=== PATIENT | female | born 1950 ===

== ENCOUNTER 2016-03-01 10:38 | Inpatient (IN) | payer MEDICARE ==
[2016-03-01] MEDS ORDERED: FLAGYL 500 MG/100 ML 100 ML IV ONE (11:10)
[2016-03-01] MEDS ORDERED: ZOFRAN IV ONE (11:10)
[2016-03-01] MEDS ORDERED: DILAUDID IV ONE (11:10)
[2016-03-01] MEDS ORDERED: ZOSYN/NS 4.5GM/100ML 100 ML IV ONE (11:10)
[2016-03-01] MEDS ORDERED: NACL 0.9% 1000 ML 1,000 ML IV ONE (11:10)
--- NOTE | 2016-03-01 11:41 | Emergency Department Report ---
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 Patient was undergoing a routine screening colonoscopy today. Patient's fermentation operator, Dr. Desir, notified me that he saw a possible small tear in the colon. He states he placed to clips at the site to help identify the area. He then called EMS to bring patient is department. Patient is complaining of indigestion. She has no other complaints. -: This morning Consistency: constant Improves With: nothing Worsens With: nothing Context: recent surgery/procedure Associated Symptoms: denies other symptoms - Related Data Home Medications Medication Instructions Recorded Confirmed Last Taken ALPRAZolam [Xanax TAB] 0.25 mg PO 03/01/16 Unknown Aspirin [Aspirin BABY CHEW TAB] 81 mg PO QDAY 03/01/16 03/01/16 Unknown Benazepril (Nf) 20 mg PO 03/01/16 Unknown Cyclobenzaprine HCl [Flexeril 5 MG 5 mg PO 03/01/16 Unknown TAB] Diclofenac Dr [Voltaren Dr] 75 mg PO 03/01/16 Unknown Hydrochlorothiazide [HCTZ] 25 mg PO QDAY 03/01/16 03/01/16 Unknown traZODone [Desyrel] 50 mg PO QHS 03/01/16 03/01/16 Unknown Allergies Allergy/AdvReac Type Severity Reaction Status Date / Time codeine Allergy Vomiting Verified 03/01/16 11:17 latex Allergy Rash Verified 03/01/16 11:17 propoxyphene HCl Allergy Rash Verified 03/01/16 11:17 [From [facility]] ED Review of Systems ROS: Stated complaint: POSS COLON TEAR Other details as noted in HPI Comment: All other systems reviewed and negative Gastrointestinal: as per HPI (indigestion) ED Past Medical Hx - Past Medical History Previous Medical History?: Yes Hx Hypertension: Yes Hx Arthritis: Yes Additional medical history: colon polyps - Surgical History Past Surgical History?: Yes Additional Surgical History: carpal tunnel repair, hysterectomy - Family History Family history: no significant - Social History Smoking Status: Never Smoker Substance Use Type: None - Medications Home Medications: Home Medications Medication Instructions Recorded Confirmed Last Taken Type ALPRAZolam [Xanax TAB] 0.25 mg PO 03/01/16 Unknown History Aspirin [Aspirin BABY CHEW TAB] 81 mg PO QDAY 03/01/16 03/01/16 Unknown History Benazepril (Nf) 20 mg PO 03/01/16 Unknown History Cyclobenzaprine HCl [Flexeril 5 MG 5 mg PO 03/01/16 Unknown History TAB] Diclofenac Dr [Voltaren Dr] 75 mg PO 03/01/16 Unknown History Hydrochlorothiazide [HCTZ] 25 mg PO QDAY 03/01/16 03/01/16 Unknown History traZODone [Desyrel] 50 mg PO QHS 03/01/16 03/01/16 Unknown History ED Physical Exam - General Limitations: No Limitations General appearance: alert, in no apparent distress - Head Head exam: Present: atraumatic, normocephalic - Eye Eye exam: Present: normal appearance, PERRL, EOMI - ENT ENT exam: Present: normal exam, normal orophraynx, mucous membranes moist - Neck Neck exam: Present: normal inspection, full ROM. Absent: tenderness - Respiratory Respiratory exam: Present: normal lung sounds bilaterally. Absent: respiratory distress - Cardiovascular Cardiovascular Exam: Present: regular rate, normal rhythm, normal heart sounds - GI/Abdominal GI/Abdominal exam: Present: soft, normal bowel sounds. Absent: distended, tenderness - Extremities Exam Extremities exam: Present: normal inspection, full ROM. Absent: tenderness - Back Exam Back exam: Present: normal inspection, full ROM. Absent: tenderness - Neurological Exam Neurological exam: Present: alert, oriented X3. Absent: motor sensory deficit - Skin Skin exam: Present: warm, dry, intact ED Course Vital Signs 03/01/16 03/01/16 03/01/16 11:08 12:14 12:16 Temperature 97.8 F Pulse Rate 71 91 H Respiratory 20 16 16 Rate Blood Pressure 119/66 Blood Pressure 148/81 [Right] O2 Sat by Pulse 96 97 97 Oximetry - Reevaluation(s) Reevaluation #1: 03/01/16 12:58 Notified by the radiologist of the CT findings. Patient has a large amount of free air in the peritoneum and retroperitoneum. There is also pneumomediastinum and a left-sided pneumothorax, the extent of which is not fully seen on the CT abdomen and pelvis. CT of the chest has been ordered fully delineate the chest findings. Reevaluation #2: 03/01/16 13:24 CT of the chest reviewed by me shows pneumomediastinum and a small left pneumothorax. - Consultations Consultation #1: 03/01/16 13:[address] Montilla, surgery. He will see the patient in the emergency department. Consultation #2: 03/01/16 13:25 Dr. Mcneal, pulmonary/critical care has been consulted and will see the patient in the ICU. ED Medical Decision Making - Lab Data Result diagrams: 03/01/16 12:02 03/01/16 12:02 - Radiology Data Radiology results: report reviewed, image reviewed - Differential Diagnosis Colon perforation, peritoneal air Critical care attestation.: If time is entered above; I have spent that time in minutes in the direct care of this critically ill patient, excluding procedure time. ED Disposition Clinical Impression: Perforation bowel, Pneumomediastinum Disposition: OP ADMITTED IP TO THIS HOSP Is pt being admited?: Yes Condition: Stable Instructions: Abdominal Pain (ED) Time of Disposition: 13:26
[2016-03-01 12:16] LABS: Basophils % (Auto) 0.3 % (0.0-1.8); Eosinophils % (Auto) 0.3 % (0.0-4.3); Hematocrit 36.9 % (30.3-42.9); Hemoglobin 11.8 gm/dl (10.1-14.3); Mean Corpuscular HGB Conc 32 % (30-34); Mean Corpuscular Hemoglobin 27 pg (28-32); Mean Corpuscular Volume 86 fl (79-97); Platelet Count 262 K/mm3 (140-440); Red Blood Count 4.31 M/mm3 (3.65-5.03); Red Cell Distribution Width 15.2 % (13.2-15.2); White Blood Count 13.5 K/mm3 (4.5-11.0)
[2016-03-01 12:35] LABS: Alanine Aminotransferase 16 units/L (7-56); Albumin 4.1 g/dL (3.9-5); Albumin/Globulin Ratio 1.5 %; Alkaline Phosphatase 74 units/L (35-129); BUN/Creatinine Ratio 11.66; Bilirubin,Total 0.2 mg/dL (0.1-1.2); Blood Urea Nitrogen 7 mg/dL (7-17); Calcium 9.2 mg/dL (8.4-10.2); Carbon Dioxide 25 mmol/L (22-30); Chloride 100.5 mmol/L (98-107); Glucose 140 mg/dL (65-100); Potassium 4.1 mmol/L (3.6-5.0); Sodium 141 mmol/L (137-145); Total Protein 6.8 g/dL (6.3-8.2)
[2016-03-01 12:36] LABS: Anion Gap 20 mmol/L; Bilirubin,Direct < 0.2 mg/dL (0-0.2)
--- NOTE | 2016-03-01 12:38 | Cat Scan Report ---
CT of the abdomen and pelvis without contrast. Findings: There is a large pneumoperitoneum with predominance of the peritoneal air on the right. Air is seen in the retroperitoneum surrounding the right kidney as well. There is a partially visualized left pneumothorax and pneumomediastinum. The liver, spleen, and pancreas are normal. No pelvic fluid collections are seen. Impression: Pneumoperitoneum, left pneumothorax and pneumomediastinum, partially imaged. Air is seen in the retroperitoneum as well, predominantly on the right. These findings are consistent with a ruptured viscus with dissection into the thorax as described.
--- NOTE | 2016-03-01 13:30 | Cat Scan Report ---
CT of the chest without contrast. Findings: A small left pneumothorax, is estimated at 10% or less and is contiguous with a large pneumomediastinum with air extending throughout all compartments of the mediastinum. There is minimal left lower lobe atelectasis, but no pleural fluid. Impression: Large pneumomediastinum with contiguous small left pneumothorax.
[2016-03-01] MEDS ORDERED: NACL 0.9% 1000 ML 1,000 ML IV SCH (14:00)
--- NOTE | 2016-03-01 14:16 | Admit Criteria Form ---
Admission Criteria Documentation: ABDOMINAL PAIN Clinical Indications for Admission to Inpatient Care (Place 'X' for any and all applicable criteria): Admission is indicated for ANY ONE of the following(1)(2)(3)(4)(5): [X ]I. Inpatient admission required rather than observation care (Also use Abdominal Pain: Observation Care, as appropriate) because of ANY ONE of the following: [ ]a) Severe pain requiring acute inpatient management [X ]b) Identification of etiology/finding that requires inpatient care (eg, aortic dissection, free air) [ ]c) Absent bowel sounds with complete ileus(6) [ ]d) Suspected toxic megacolon [ ]e) Severe electrolyte abnormalities requiring inpatient care [ ]f) High fever or infection requiring inpatient admission as indicated by ANY ONE of following(7)(8): [ ] i) Appropriate outpatient or observational care antimicrobial treatment unavailable, not effective, or not feasible [ ] ii) Documented bacteremia [ ] iii) Temperature > 104.9 degrees F (oral) [ ] iv) T >103.1 F (oral) or < 96.8 F(rectal) that does not respond to all emergency treatment measures [ ]g) Signs of intestinal obstruction [B] [ ]h) Hemodynamic instability [ ]i) IV fluid to replace significant ongoing losses (greater than 3 L/m2 per day) (12)(13) [ ]j) Percutaneous or open drainage (eg, abscess, biliary tract ) procedures [ ]k) Parenteral nutrition regimen that must be implemented on inpatient basis [ ]l) Other condition,treatment or monitoring requiring inpatient admission. [ ]II. Peritoneal signs present [ ]III. Surgery needed that cannot be performed on an ambulatory basis. [ ]IV. Evaluation requires patient to not eat or drink for extended period ( eg, more than 24 hours). [ X]V. Contraindications and/or Inappropriate clinical situations for Observational Care in patients with abdominal pain, when ANY ONE of the following is required: [ ]a) Thorough evaluation is required to prevent catastrophic events due to delays in diagnosing (e.g.Mesenteric ischemia) 1,3 [X ]b) Patient with severe pathology or with chronic symptoms unlikely to improve in the ED stay (3) [ X]. General contraindications and/or Inappropriate clinical situations for Observational Care in patients with abdominal pain, when ANY ONE of the following is required: X[ X]a) Prediction of prolongation of LOS based on ANY ONE of the following may be considered as a contraindication for observational care 2, 3, 4, 5, 6, 7, 8, 9, 10, 11 [ X]i) Age > 65 yrs. [X ]ii) Patient arriving by ambulance [ ]iii) Patient with high acuity [ ]iv) Patient requiring vital sign monitoring [ ]v) Patient on IV medication [ ]b) Systolic blood pressures 180mmHg 3,12 [ ]c) Patient with altered mental status including delirium and other alteration of consciousness, (3) [ ]d) Patient whose discharge disposition will be to a long-term home or rehabilitation home should not be managed in Emergency Department Observation Unit. CMS rule requires 3 days hospital stay before such placement.3,13 [ ]e) Patient with failure to thrive due to broad array of etiologies 3,16,17 [ ]f) Inability to ambulate 3,14 Extended stay beyond goal length of stay may be needed for(2)(3): [ ]a) Persistent abdominal pain with suspected intra-abdominal process [ ]b) Diagnosed condition requiring continued stay (e.g., pancreatitis, complicated diverticulitis) [ ]c) Surgery (e.g., colectomy) The original [employer] content created by [employer] has been revised. The portions of the content which have been revised are identified through the use of italic text or in bold, and [facility] has neither reviewed nor approved the modified material.All other unmodified content is copyright [employer]. Please see references footnoted in the original [facility] edition 2016 Admission Criteria Met: Yes
--- NOTE | 2016-03-01 14:20 | Event Note ---
Date: 03/01/16
[2016-03-01] MEDS ORDERED: ALUM-MAG HYDROX-SIMETH 200-200-20MG/5ML PO PRN (14:22)
[2016-03-01] MEDS ORDERED: DILAUDID IV PRN ×3 (14:22→15:19)
[2016-03-01] MEDS ORDERED: DULCOLAX PR PRN (14:22)
[2016-03-01] MEDS ORDERED: NON-FORMULARY (Cyclobenzaprine Hcl [Flexeril 5 Mg Tab] 5 MG) PO SCH (14:30)
--- NOTE | 2016-03-01 14:39 | Consultation ---
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 According to the patient, she did not have any biopsies done or any polpys removed. She said that she has severe abdominal pain immediately after the procedure. In the ER, an abdominal CT revealed pneumoperitoneum as well as retroperitoneal air and pneumomediastinum. Past History Past Medical History: hypertension Past Surgical History: hysterectomy Medications and Allergies Allergies Allergy/AdvReac Type Severity Reaction Status Date / Time codeine Allergy Vomiting Verified 03/01/16 11:17 latex Allergy Rash Verified 03/01/16 11:17 propoxyphene HCl Allergy Rash Verified 03/01/16 11:17 [From [facility]] Home Medications Medication Instructions Recorded Confirmed Last Taken Type ALPRAZolam [Xanax TAB] 0.25 mg PO 03/01/16 Unknown History Aspirin [Aspirin BABY CHEW TAB] 81 mg PO QDAY 03/01/16 03/01/16 Unknown History Benazepril (Nf) 20 mg PO 03/01/16 Unknown History Cyclobenzaprine HCl [Flexeril 5 MG 5 mg PO 03/01/16 Unknown History TAB] Diclofenac Dr [Voltaren Dr] 75 mg PO 03/01/16 Unknown History Hydrochlorothiazide [HCTZ] 25 mg PO QDAY 03/01/16 03/01/16 Unknown History traZODone [Desyrel] 50 mg PO QHS 03/01/16 03/01/16 Unknown History Active Meds: Active Medications Al Hydrox/Mg Hydrox/Simethicone (Alum-Mag Hydrox-Simeth [id number]/5ml) 30 ml PO Q4H PRN PRN Reason: Indigestion Bisacodyl (Dulcolax) 10 mg NH QDAY PRN PRN Reason: constipation unrelieved by MOM Hydromorphone HCl (Dilaudid) 1 mg IV Q3HR PRN PRN Reason: Pain , Severe (7-10) Sodium Chloride (Nacl 0.9% 1000 Ml) 1,000 mls @ 125 mls/hr IV DIRECT MUKESH Dextrose/Sodium Chloride (D5ns) 1,000 mls @ 100 mls/hr IV DIRECT MUKESH Piperacillin Sod/Tazobactam Sod (Zosyn/Ns 4.5gm/100ml) 100 mls @ 200 mls/hr IV Q8HR MUKESH PRN Reason: Protocol Magnesium Hydroxide (Milk Of Magnesia) 30 ml PO Q4H PRN PRN Reason: Constipation Miscellaneous Medication (Cyclobenzaprine Hcl [Flexeril 5 Mg Tab]) 5 mg PO Q12H MUKESH Review of Systems - Gastrointestinal abdominal pain Exam Vital Signs Temp Pulse Resp BP Pulse Ox 97.8 F 71 20 119/66 96 03/01/16 11:08 03/01/16 11:08 03/01/16 11:08 03/01/16 11:08 03/01/16 11:08 - General physical appearance Positive: moderate distress - Eyes Positive: normal occular movement - Neck Positive: no masses, trachea midline - Respiratory Positive: clear to auscultation - Cardiovascular Rhythm: regular Heart Sounds: Present: S1 & S2 - Abdomen Abdomen: Present: soft (right sided abdominal tenderness to palpation) Results - Labs 03/01/16 12:02 03/01/16 12:02 Assessment and Plan 1. The patient will be taken to the OR for diagnostic laparoscopy, possible open exploratory laparotomy for perforated viscus. She has been given zosyn/ flagyl. The procedure was explained to the patient as well as its risks and benefits. Ample time was given for the patient to ask questions.
[2016-03-01] MEDS ORDERED: LACTATED RINGERS 1,000 ML ONE ×2 (14:55→17:39)
[2016-03-01] MEDS ORDERED: D5NS 1,000 ML IV SCH (15:00)
[2016-03-01] MEDS ORDERED: DIPRIVAN 10 MG/ML IV ONE (15:05)
[2016-03-01] MEDS ORDERED: DILAUDID ONE (15:06)
[2016-03-01] MEDS ORDERED: DECADRON ONE (15:06)
[2016-03-01] MEDS ORDERED: QUELICIN ONE (15:06)
[2016-03-01] MEDS ORDERED: ZOFRAN ONE (15:06)
[2016-03-01] MEDS ORDERED: ZEMURON IV ONE (15:06)
[2016-03-01] MEDS ORDERED: XYLOCAINE MPF 2% ONE (15:07)
--- NOTE | 2016-03-01 15:18 | Anesthesia Consultation ---
Anesthesia Consult and Med Hx Date of service: 03/01/16 - Airway Anesthetic Teeth Evaluation: Good ROM Head & Neck: Adequate Mental/Hyoid Distance: Adequate Mallampati Class: Class III Intubation Access Assessment: Possibly Difficult - Pulmonary Exam CTA: Yes - Cardiac Exam Cardiac Exam: RRR - Pre-Operative Health Status ASA Pre-Surgery Classification: ASA2 Proposed Anesthetic Plan: General - Cardiovascular System Hx Hypertension: Yes - Additional Comments Anesthesia Medical History Comments: perforated viscus
--- NOTE | 2016-03-01 15:18 | Anesthesia Day of Surgery ---
Anesthesia Day of Surgery - Day of Surgery Patient Examined: Yes Patient H&P Reviewed: Yes Patient is NPO: Yes
[2016-03-01] MEDS ORDERED: ZOFRAN IV PRN (15:19)
[2016-03-01] MEDS ORDERED: PEPCID IV NR (16:00)
[2016-03-01] MEDS ORDERED: LACTATED RINGERS 1,000 ML IV SCH ×2 (16:00→21:00)
[2016-03-01] MEDS ORDERED: MARCAINE-EPI 0.25%-1:200,000 INFILTRATI ONE ×2 (16:05)
[2016-03-01] MEDS ORDERED: NACL 0.9% IR ONE ×2 (16:26→18:03)
[2016-03-01] MEDS ORDERED: NACL 0.9% 1000 ML 0 ML ONE (17:39)
[2016-03-01] MEDS ORDERED: NACL 0.9% 1000 ML 1,000 ML ONE (17:39)
[2016-03-01] MEDS ORDERED: TORADOL ONE (18:22)
--- NOTE | 2016-03-01 18:29 | Post Operative Note ---
Pre-op diagnosis: Colon perforation Post-op diagnosis: same Procedure: Laparoscopic colonorrhaphy Anesthesia: GETA, local Surgeon: FRANCES LEONARD Vmware Architect: CHUN MOONEY Estimated blood loss: minimal Pathology: none Condition: stable Disposition: floor
[2016-03-01] MEDS: ZOSYN/NS 4.5GM/100ML 100 ML IV SCH (19:05)
--- NOTE | 2016-03-01 19:51 | Operative Report ---
PREOPERATIVE DIAGNOSIS: Colonic perforation. POSTOPERATIVE DIAGNOSIS: Colonic perforation. PROCEDURE: Laparoscopic exploration with lysis of adhesions and colonorrhaphy with abdominal washout. SURGEON: Dr. Jamal Hobbs. DIRECTOR GEOTHERMAL OPERATIONS: Dr. Montilla. ANESTHESIA: General and local. ESTIMATED BLOOD LOSS: Minimal. SPECIMEN: None. IMPLANTS: None. MESH: None. OPERATIVE FINDINGS: Perforated sigmoid colon in the pelvis with dense fibrotic pelvic adhesions between the small bowel and the colon with a 1.5 cm hole in the lateral aspect of the sigmoid colon. COMPLICATIONS: None. INDICATIONS: This is a 66-year-old female, who was having a screening colonoscopy and during the procedure, there were signs of a tear in the mucosa. A clip was placed on this opening for identification purposes. No other pathology was seen during the colonoscopy that would require being addressed and no other instrumentation or biopsies were performed. She presents now with an abdomen that is distended and tympanitic with a CT scan showing free air and she presents now for repair of this colonic perforation. OPERATIVE COURSE: The patient was brought to the operating room, identified, and placed in the supine position. General anesthesia was achieved. Her abdomen was prepped and draped in usual manner. Prior to all incisions, the area was infiltrated with 0.25% Marcaine. A supraumbilical 5 mm incision was made using a Veress needle technique. The abdomen was insufflated to 15 mmHg pressure. A 5 mm trocar was inserted using a 30-degree 5-mm telescope. The trocars were placed under direct vision, which included a right lateral 5 mm port and a right lower quadrant 5 mm port. The abdomen was explored. The colon was distended. There was evidence of subcutaneous air in the mesentery of the small bowel and colon. The pelvis was completely obliterated by the bowel and colon adhered into the pelvis with a frozen pelvis. We started dissection with sharp and blunt dissection, dissecting these adhesions as we went, eventually freeing up the small bowel. These were quite extensive. Great care was taken not to injure the small bowel or colon. It should be noted that we did see the appendix and it was normal. Once we had the colon freed up completely and the rectum exposed, we found a hole in the sigmoid colon on the lateral aspect at the transition from colon to the colonic mesentery. This was about 1.5 cm in length. We could see metal clip in the mucosa from the colonoscopy. No other holes were seen. There was very minimal colonic content spilled into the pelvis, which was evacuated. Because of the size of the hole, I elected to close it primarily, so I debrided some of the tissue away from the hole itself, so we had nice smooth colonic serosal surface. Using the suture assist device with 2-0 sutures, we placed interrupted sutures until it was completely occluded. I then irrigated the abdomen copiously, mainly the pelvis, keeping the fluid in the pelvis and then evacuated this fluid. Because the colon was very redundant in this area and accordianed into the pelvis again, I elected to tack it to the left lateral wall with a single suture and I sutured the mesentery on the lateral aspect of the sigmoid colon over the lateral wall, to keep it from rescarring down into the pelvis. Hopefully this will facilitate future colonoscopies as well as make it easier for a future surgery if necessary. There was no significant omentum to drape back across the bowels. No other pathology was seen. We removed the ports under direct vision. No signs of bleeding from the port sites. We evacuated the CO2 and closed all the incisions with a 4-0 Vicryl suture, Steri-Strips and bandage. JOB# [id number] LILLIAN/ANGELY MEADOWS
--- NOTE | 2016-03-01 20:40 | Post Anesthesia Evaluation ---
- Post Anesthesia Evaluation Patient Participated: Yes Airway Patent: Yes Stable Respiratory Function: Yes Temp > 96.8F: Yes Pain Manageable: Yes Adequeate Hydration: Yes Anesthesia Complications: No Block Receding Appropriately: Not Applicable
[2016-03-01] MEDS: FLEXERIL PO SCH (22:17)
[2016-03-01] MEDS ORDERED: ZESTRIL PO SCH (23:00)
[2016-03-01] MEDS ORDERED: HCTZ PO SCH (23:00)
--- NOTE | 2016-03-02 01:28 | History and Physical Report ---
CHIEF COMPLAINT: Perforated colon, sent from surgery aide's office. HISTORY OF PRESENT ILLNESS: A 66-year-old -British female who went to her surgery aide's office for colonoscopy. After colonoscopy, Dr. Desir notified that he saw a possible small tear in the colon and sent to the ER for further care. He also placed clips at the site to help identify the area. The patient complaining of some slight abdominal pain, but no shortness of breath, no chest pain, no abdominal pain. PAST MEDICAL HISTORY: Significant for arthritis, hypertension, and generalized anxiety disorder. CURRENT MEDICATIONS: Xanax 0.25 p.o. at bedtime, benazepril 20 mg p.o. daily, cyclobenzaprine 5 mg b.i.d., diclofenac 75 mg b.i.d., hydrochlorothiazide 25 mg p.o. daily. As mentioned past medical history is significant for hypertension, arthritis, colon polyps. PAST SURGICAL HISTORY: Carpal tunnel repair and hysterectomy. FAMILY HISTORY: No significant family history. SOCIAL HISTORY: Does not smoke. No alcohol, no recreational drugs. REVIEW OF SYSTEMS: Significant for slight abdominal discomfort. No shortness of breath, no severe pain. Review of systems is essentially negative. PHYSICAL EXAMINATION: GENERAL: Elderly female, cooperative during examination. VITAL SIGNS: Blood pressure is , temperature is 97.8, pulse is 71, respiratory rate is 20. HEENT: Unremarkable. Pupils equal and reactive. NECK: Supple, no lymphadenopathy, no thyromegaly. LUNGS: Clear to auscultation and percussion. Good air entry. CARDIOVASCULAR: S1, S2 heard. No gallop, no murmur, no rub. Apical impulse in left fifth intercostal space and midclavicular line. ABDOMEN: Soft and benign. Bowel sounds are normal. EXTREMITIES: Good pedal pulses. No pedal edema. CENTRAL NERVOUS SYSTEM: Alert and oriented x 4, nonfocal exam. LABORATORY DATA: Unremarkable. White count is 13,500. X-ray and radiology shows pneumomediastinum and small left pneumothorax. Large amount of free air in the peritoneum and retroperitoneum. ASSESSMENT AND PLAN: 1. Pneumomediastinum and pneumothorax secondary to colon perforation. The patient appears stable. Admit to ICU. 2. Colon perforation. The patient to be taken for emergent surgery. Post-surgery to be admitted to ICU or surgical floor. The patient appears stable. The pneumomediastinum and pneumothorax should resolve spontaneously. At this point, does not need chest tube. 3. Hypertension. Catapres- TTS-2 patch. 4. Pain management, Dilaudid 1 mg q. 3 p.r.n. 5. Deep venous thrombosis prophylaxis, Lovenox 40 mg subcutaneous daily. JOB# [id number] YOVANA/NTS
[2016-03-02] MEDS: ZOSYN/NS 4.5GM/100ML 100 ML IV SCH ×2 (03:00→14:00)
[2016-03-02] MEDS: FLEXERIL PO SCH ×2 (03:00→15:00)
[2016-03-02] MEDS: DILAUDID IV PRN ×3 (03:52→20:21)
[2016-03-02 07:41] LABS: Hematocrit 31.4 % (30.3-42.9); Hemoglobin 10.4 gm/dl (10.1-14.3); Mean Corpuscular HGB Conc 33 % (30-34); Mean Corpuscular Hemoglobin 28 pg (28-32); Mean Corpuscular Volume 84 fl (79-97); Platelet Count 236 K/mm3 (140-440); Red Blood Count 3.75 M/mm3 (3.65-5.03); Red Cell Distribution Width 15.3 % (13.2-15.2); White Blood Count 16.6 K/mm3 (4.5-11.0)
[2016-03-02 08:14] LABS: Anion Gap 20 mmol/L; Blood Urea Nitrogen 10 mg/dL (7-17); Calcium 8.3 mg/dL (8.4-10.2); Carbon Dioxide 22 mmol/L (22-30); Chloride 101.5 mmol/L (98-107); Glucose 120 mg/dL (65-100); Potassium 3.4 mmol/L (3.6-5.0); Sodium 140 mmol/L (137-145)
--- NOTE | 2016-03-02 08:21 | Query- Abdominal Pain ---
Rose Sanders_Carissa Date:____03/02/15 Outside Production Inspector/CDS:____Dianafany Mcgovern Phone#: [phone] Exercise your independent professional judgment when responding to this query. Questions asked do not imply that a particular answer is desired or expected. We greatly appreciate your clarification on this issue. Clinical Documentation States: 66 year old male was admitted on 03/01/16. The patient came to the ER complaining of Abdominal pain The H&P states : perforated colon. Large amount of free air in the peritoneum and retroperitoneum. The operative report dictates " sigmoid colon with dense fibrotic pelvic adhesions between small bowel and colon with 1.5 cm hole in the lateral aspect of sigmoid colon ". " Procedure: Laparoscopic exploration with lysis of adhesions and colorraphy with abdominal washout " Clinical Findings Show: Please specify the etiology of Abdominal Pain: [ ]Appendicitis, Acute [ ] Intestinal Obstruction [ ]Diverticulitis, Acute [ ] Uremia [ ]Pancreatitis, Acute [ ] Thoracic Aortic Aneurysm [ ]Peritonitis [ ] Urinary Tract Infection [ ]Ulcerative Colitis [ ] Pelvic Inflammatory Disease [ ]Cholecystitis [ ] Cystitis [ ]Cholangitis [ ] Pyelonephritis [ ]Viral Gastroenteritis [ ] Renal Stones [ ]Gastroenteritis, Bacterial [ ] Retroperitoneal Infection [ ]Gastritis [ ] Shingles [ ]Peritoneal Irritation [ ] Mesenteric Artery Occlusion [ ]Peritoneal Inflammation [ ] Trauma(please specify): _ [ ]Peritoneal Infection [ ] Irritable Bowel Syndrome [ ]Constipation [ ] Hernia [ ]GERD [ ] Cholelithiasis [ ]Peptic Ulcer [ ] Vascular Insufficiency of Intestine [ ]Diabetic Ketoacidosis [ ]Cancer [ ]Other:____Peritoneal air [ ]Unable to determine [ ]Comment/Explanation: Present on Admission: [ x] Yes (Y) [ ] Clinically undeterminable (W) [ ] No(N) Please also document response in your Progress Notes and/or Discharge Summary and indicate if the condition was present on admission. DORI
--- NOTE | 2016-03-02 09:02 | Event Note ---
Date: 03/02/16 Courtesy visit: The patient is known to me having been referred to the hospital yesterday after recognized small perforation in the sigmoid colon and colonoscopy due to matted , fixed bowel. The patient had a significant air leak requiring laparoscopic repair of the defect, but did not require resection or colostomy as there was minimal leakage. The events were discussed with patient at length. I had spoken with her son preoperatively yesterday. She has done well over night and reports passing some flatus already. She has no significant abdominal discomfort. A relatively short hospital course is anticipated although an ileus is expected in this setting. We will be following patient, at least informally as she is recovering well so far. Dawit Desir MD [facility]
--- NOTE | 2016-03-02 09:29 | Progress Note ---
Assessment and Plan Assessment and plan: 1. Perforated colon post colonoscopy and post ,laparoscopic repair-management is as per surgery. She is currently nothing by mouth. Continue IV fluids. Patient encouraged to use incentive spirometer. Continue IV Dilaudid as needed for pain and monitor for respiratory depression. Continue IV fluids and IV antibiotics. 2. Sirs with temperature spike and leukocytosis to rule out sepsis-we'll continue to monitor. Will get blood cultures. Continue on IV antibiotics empirically. 3. Benign hypertension-controlled, continue clonidine patch. 4. Mild hypokalemia -replace with IV potassium supplementation and continue to monitor 5. DVT prophylaxis-SCDs, will defer chemical prophylaxis to surgery, consult PT for ambulation History Interval history: f/u perforated colon post repair Patient seen at the bedside; passing gas; feels a little bloated; no significant abdominal pain Hospitalist Physical - Constitutional Vitals: Temp Pulse Resp BP Pulse Ox 99 F 85 20 129/61 99 03/02/16 08:01 03/02/16 08:01 03/02/16 08:01 03/02/16 08:01 03/02/16 08:01 General appearance: Present: no acute distress, well-nourished - EENT Eyes: Present: PERRL, EOM intact. Absent: scleral icterus, conjunctival injection ENT: hearing intact, clear oral mucosa, no oropharyngeal erythema, no poor dentition - Neck Neck: Present: supple, normal ROM. Absent: enlarged thyroid, masses or JVD - Respiratory Respiratory effort: normal Respiratory: negative: diminished, rales, rhonchi, wheezing - Cardiovascular Rhythm: regular Heart Sounds: Present: S1 & S2. Absent: gallop - Extremities Extremities: no ischemia, pulses intact, pulses symmetrical, No edema Peripheral Pulses: within normal limits - Abdominal General gastrointestinal: soft, tender (mild), distended (mild), hypoactive bowel sounds - Integumentary Integumentary: Present: clear - Psychiatric Psychiatric: appropriate mood/affect, intact judgment & insight, cooperative - Neurologic Neurologic: CNII-XII intact, moves all extremities Results - Labs CBC & Chem 7: 03/02/16 07:23 03/02/16 07:23 Labs: Laboratory Last Values WBC 16.6 K/mm3 (4.5-11.0) H 03/02/16 07:23 RBC 3.75 M/mm3 (3.65-5.03) 03/02/16 07:23 Hgb 10.4 gm/dl (10.1-14.3) 03/02/16 07:23 Hct 31.4 % (30.3-42.9) 03/02/16 07:23 MCV 84 fl (79-97) 03/02/16 07:23 MCH 28 pg (28-32) 03/02/16 07:23 MCHC 33 % (30-34) 03/02/16 07:23 RDW 15.3 % (13.2-15.2) H 03/02/16 07:23 Plt Count 236 K/mm3 (140-440) 03/02/16 07:23 Lymph % (Auto) 13.1 % (13.4-35.0) L 03/01/16 12:02 [place] % (Auto) 5.1 % (0.0-7.3) 03/01/16 12:02 Eos % (Auto) 0.3 % (0.0-4.3) 03/01/16 12:02 Baso % (Auto) 0.3 % (0.0-1.8) 03/01/16 12:02 Lymph # 1.8 K/mm3 (1.2-5.4) 03/01/16 12:02 [place] # 0.7 K/mm3 (0.0-0.8) 03/01/16 12:02 Eos # 0.0 K/mm3 (0.0-0.4) 03/01/16 12:02 Baso # 0.0 K/mm3 (0.0-0.1) 03/01/16 12:02 Seg Neutrophils % 81.2 % (40.0-70.0) H 03/01/16 12:02 Seg Neutrophils # 10.9 K/mm3 (1.8-7.7) H 03/01/16 12:02 Sodium 140 mmol/L (137-145) 03/02/16 07:23 Potassium 3.4 mmol/L (3.6-5.0) L 03/02/16 07:23 Chloride 101.5 mmol/L (98-107) 03/02/16 07:23 Carbon Dioxide 22 mmol/L (22-30) 03/02/16 07:23 Anion Gap 20 mmol/L 03/02/16 07:23 BUN 10 mg/dL (7-17) 03/02/16 07:23 Creatinine 0.8 mg/dL (0.7-1.2) 03/02/16 07:23 Estimated GFR > 60 ml/min 03/02/16 07:23 BUN/Creatinine Ratio 12.50 % 03/02/16 07:23 Glucose 120 mg/dL (65-100) H 03/02/16 07:23 Calcium 8.3 mg/dL (8.4-10.2) L 03/02/16 07:23 Total Bilirubin 0.2 mg/dL (0.1-1.2) 03/01/16 12:02 Direct Bilirubin < 0.2 mg/dL (0-0.2) 03/01/16 12:02 Indirect Bilirubin 0.0 mg/dL 03/01/16 12:02 AST 24 units/L (5-40) 03/01/16 12:02 ALT 16 units/L (7-56) 03/01/16 12:02 Alkaline Phosphatase 74 units/L (35-129) 03/01/16 12:02 Total Protein 6.8 g/dL (6.3-8.2) 03/01/16 12:02 Albumin 4.1 g/dL (3.9-5) 03/01/16 12:02 Albumin/Globulin Ratio 1.5 % 03/01/16 12:02 - Imaging and Cardiology CT scan - abdomen: report reviewed (CT abdomen and pelvis-pneumoperitoneum, with predominance of departure no ear on the right. Interested in the retroperitoneal area surrounding the right kidney appeared partially visualized left pneumothorax and pneumomediastinum)
[2016-03-02] MEDS ORDERED: CATAPRES-TTS PATCH TD SCH (10:00)
[2016-03-02] MEDS: KCL 10MEQ/100ML 100 ML IV SCH ×2 (10:48→17:00)
--- NOTE | 2016-03-02 10:50 | Consultation ---
History of Present Illness Consult date: 03/02/16 Requesting physician: NADIA VARELA Reason for consult: pneumothorax History of present illness: 66 y/o female found to have a tear in the GI tract seen on outpatient colonoscopy who presents to the ED for further evaluation. Found to have significant free air in the abdomen and under the diaphragm. There is also a large PTX seen on the left on CT of abdomen so dedicated chest CT showed ptx and pneumomediastinum. Patient taken to OR for ex-lap and is now on the floor stable. Past History Past Medical History: hypertension Past Surgical History: hysterectomy Social history: smoking (former smoker of 9 years quit in ) Family history: no significant family history Medications and Allergies Allergies Allergy/AdvReac Type Severity Reaction Status Date / Time codeine Allergy Vomiting Verified 03/01/16 11: latex Allergy Rash Verified 03/01/16 11:17 propoxyphene HCl Allergy Rash Verified 03/01/16 11:17 [From [facility]] Home Medications Medication Instructions Recorded Confirmed Last Taken Type ALPRAZolam [Xanax TAB] 0.25 mg PO HS PRN 03/01/16 03/01/16 02/29/16 20:00 History Aspirin [Aspirin BABY CHEW TAB] 81 mg PO QDAY 03/01/16 03/01/16 02/26/16 20:00 History Benazepril (Nf) 20 mg PO DAILY 03/01/16 03/01/16 02/29/16 History Cyclobenzaprine HCl [Flexeril 5 MG 5 mg PO BID PRN 03/01/16 03/01/16 10/28/15 History TAB] Hydrochlorothiazide [HCTZ] 25 mg PO QDAY 03/01/16 03/01/16 02/29/16 20:00 History traZODone [Desyrel] 50 mg PO QHS 03/01/16 03/01/16 02/28/16 20:00 History Active Meds: Active Medications Al Hydrox/Mg Hydrox/Simethicone (Alum-Mag Hydrox-Simeth [id number]/5ml) 30 ml PO Q4H PRN PRN Reason: Indigestion Bisacodyl (Dulcolax) 10 mg MI QDAY PRN PRN Reason: constipation unrelieved by MOM Clonidine HCl (Catapres-Tts Patch) 0.2 mg TD We MUKESH Cyclobenzaprine HCl (Flexeril) 5 mg PO Q12H [facility] Last Admin: 03/02/16 03:00 Dose: Not Given Hydrochlorothiazide (Hctz) 25 mg PO QDAY [facility] Last Admin: 03/02/16 00:19 Dose: Not Given Hydromorphone HCl (Dilaudid) 1 mg IV Q3H PRN PRN Reason: Pain , Severe (7-10) Last Admin: 03/02/16 03:52 Dose: 1 mg Piperacillin Sod/Tazobactam Sod (Zosyn/Ns 4.5gm/100ml) 100 mls @ 200 mls/hr IV Q8H [facility] PRN Reason: Protocol Last Admin: 03/02/16 03:00 Dose: 200 mls/hr Lactated Ringer's (Lactated Ringers) 1,000 mls @ 80 mls/hr IV DIRECT MUKESH Potassium Chloride (Kcl 10meq/100ml) 100 mls @ 100 mls/hr IV Q1H [facility] Stop: 03/02/16 12:29 Influenza Virus Vaccine Quadrival (Fluarix Quad [id number](36 Mos+)) 60 mcg IM .ONCE ONE Stop: 03/02/16 12:01 Lisinopril (Zestril) 20 mg PO QDAY [facility] Last Admin: 03/01/16 23:30 Dose: 20 mg Magnesium Hydroxide (Milk Of Magnesia) 30 ml PO Q4H PRN PRN Reason: Constipation Ondansetron HCl (Zofran) 4 mg IV Q3H PRN PRN Reason: Nausea And Vomiting Pneumococcal Polyvalent Vaccine (Pneumovax 23) 0.5 ml IM .ONCE ONE Stop: 03/02/16 12:01 Review of Systems All systems: negative Physical Examination Vital signs: Vital Signs Temp Pulse Resp BP Pulse Ox 97.8 F 71 20 119/66 96 03/01/16 11:08 03/01/16 11:08 03/01/16 11:08 03/01/16 11:08 03/01/16 11:08 General appearance: no acute distress, alert Eyes: non-icteric ENT: oropharynx moist Neck: supple, no lymphadenopathy, other (does have some crepitus around collar bone) Ascultation: Bilateral: clear Percussion: Bilateral: not dull Tactile fremitus: Bilateral: normal Cardiovascular: regular rate and rhythm Gastrointestinal: normoactive bowel sounds, soft, other (post surgical changes) Extremities: no cyanosis, no edema Musculoskeletal: no deformities normal mental status, non-focal exam mood appropriate, affect normal Results - Laboratory Findings CBC and BMP: 03/02/16 07:23 03/02/16 07:23 Abnormal lab findings: Abnormal Labs 03/02/16 03/02/16 07:23 07:23 WBC 16.6 H RDW 15.3 H Potassium 3.4 L Glucose 120 H Calcium 8.3 L - Diagnostic Findings CT scan - chest: image reviewed (left sided PTX but with significant pneumomediastinum) Assessment and Plan 66 y/o female with ptx and pneumomediastinum, likely secondary to bowel perforation. 1. Continue conservative management with supplemental O2 for now 2. At this point, no indication for chest tube. Repeat CXR appears slightly improved. No worsening of Pneumomediastinum on exam. Will repeat 2 view tomorrow 3. Will continue to follow with you.
[2016-03-02] MEDS ORDERED: PNEUMOVAX 23 IM ONE (12:00)
[2016-03-02] MEDS ORDERED: FLUARIX QUAD 2016-2017(36 MOS+) IM ONE (12:00)
--- NOTE | 2016-03-02 12:21 | XRay Report ---
PORTABLE CHEST: INDICATION: Left-sided pneumothorax with pneumomediastinum. COMPARISON: Yesterday's CT imaging. FINDINGS: Portable, frontal chest radiograph again demonstrates normal cardiomediastinal silhouette and mild aortic knob calcifications with pneumomediastinum and bilateral supraclavicular subcutaneous emphysematous lucency/heterogeneity. Small left pneumothorax with pleural separation of approximately 1.2 cm also noted, overall estimated at 15%. No focal consolidation, significant pleural effusions or CHF. EKG leads. Few bony degenerative changes. CONCLUSION: Small left apical pneumothorax, pneumomediastinum and bilateral subcutaneous emphysema noted, as described. Thank you for the opportunity to participate in this patient's care.
--- NOTE | 2016-03-02 15:09 | Progress Note ---
Assessment and Plan She is doing well though still at risk for postop ileus and/or pelvic abscess formation. Will advance diet to clear liquids. Monitor temperature curve and WBC Continue empiric antibiotics The thoracic findings are not clinically significant and merely reflect dissection of air through the soft tissue planes from the colonic perforation. No intervention is needed. Encouraged pulmonary toilet and ambulation. Subjective Date of service: 03/02/16 Patient Reports: Positive: no new complaints (No abdominal pain. No SOB), flatus, bowel movement. Negative: nausea, vomiting Objective Vital Signs - 12hr 03/02/16 03/02/16 03/02/16 03:52 04:22 05:32 Temperature 100.1 F H Pulse Rate [ 96 H Brachial] Respiratory 20 20 20 Rate Blood Pressure 120/62 [Left Arm] O2 Sat by Pulse 100 Oximetry 03/02/16 03/02/16 03/02/16 05:34 05:36 08:01 Temperature 98.5 F 100.1 F H 99 F Pulse Rate [ 82 96 H 85 Brachial] Respiratory 20 20 20 Rate Blood Pressure 138/76 120/62 129/61 [Left Arm] O2 Sat by Pulse 98 100 99 Oximetry 03/02/16 12:17 Temperature 98.9 F Pulse Rate [ 104 H Brachial] Respiratory 18 Rate Blood Pressure 140/63 [Left Arm] O2 Sat by Pulse Oximetry - General physical appearance no distress - Respiratory normal expansion, normal respiratory effort, clear to percussion, clear to auscultation - Abdomen soft, not tender, bowel sounds normal, not distended, other (Bandaids clean dry and intact) - Labs 03/02/16 07:23 03/02/16 07:23 Diabetes panel 03/02/16 Range/Units 07:23 Sodium 140 (137-145) mmol/L Potassium 3.4 L (3.6-5.0) mmol/L Chloride 101.5 (98-107) mmol/L Carbon Dioxide 22 (22-30) mmol/L BUN 10 (7-17) mg/dL Creatinine 0.8 (0.7-1.2) mg/dL Glucose 120 H (65-100) mg/dL Calcium 8.3 L (8.4-10.2) mg/dL Calcium panel 03/02/16 Range/Units 07:23 Calcium 8.3 L (8.4-10.2) mg/dL Pituitary panel 03/02/16 Range/Units 07:23 Sodium 140 (137-145) mmol/L Potassium 3.4 L (3.6-5.0) mmol/L Chloride 101.5 (98-107) mmol/L Carbon Dioxide 22 (22-30) mmol/L BUN 10 (7-17) mg/dL Creatinine 0.8 (0.7-1.2) mg/dL Glucose 120 H (65-100) mg/dL Calcium 8.3 L (8.4-10.2) mg/dL Adrenal panel 03/02/16 Range/Units 07:23 Sodium 140 (137-145) mmol/L Potassium 3.4 L (3.6-5.0) mmol/L Chloride 101.5 (98-107) mmol/L Carbon Dioxide 22 (22-30) mmol/L BUN 10 (7-17) mg/dL Creatinine 0.8 (0.7-1.2) mg/dL Glucose 120 H (65-100) mg/dL Calcium 8.3 L (8.4-10.2) mg/dL
[2016-03-02] MEDS ORDERED: BENAZEPRIL PO SCH (22:00)
[2016-03-02] MEDS: BENAZEPRIL PO SCH (22:21)
[2016-03-02] MEDS: HCTZ PO SCH (22:22)
[2016-03-03] MEDS: MILK OF MAGNESIA PO PRN ×2 (01:23→01:24)
[2016-03-03] MEDS: DILAUDID IV PRN ×4 (01:23→21:26)
[2016-03-03] MEDS: ZOFRAN IV PRN ×2 (01:25→05:29)
[2016-03-03] MEDS: ZOSYN/NS 4.5GM/100ML 100 ML IV SCH ×2 (03:00→17:00)
[2016-03-03 05:27] LABS: Basophils % (Auto) 0.3 % (0.0-1.8); Eosinophils % (Auto) 0.6 % (0.0-4.3); Hematocrit 29.7 % (30.3-42.9); Mean Corpuscular HGB Conc 34 % (30-34); Mean Corpuscular Hemoglobin 28 pg (28-32); Mean Corpuscular Volume 84 fl (79-97); Platelet Count 234 K/mm3 (140-440); Red Blood Count 3.53 M/mm3 (3.65-5.03); Red Cell Distribution Width 15.4 % (13.2-15.2); White Blood Count 13.4 K/mm3 (4.5-11.0)
[2016-03-03 05:41] LABS: Alanine Aminotransferase 15 units/L (7-56); Albumin 3.1 g/dL (3.9-5); Alkaline Phosphatase 53 units/L (35-129); BUN/Creatinine Ratio 11.42; Bilirubin,Total 0.5 mg/dL (0.1-1.2); Blood Urea Nitrogen 8 mg/dL (7-17); Calcium 8.6 mg/dL (8.4-10.2); Carbon Dioxide 26 mmol/L (22-30); Chloride 102.9 mmol/L (98-107); Glucose 116 mg/dL (65-100); Potassium 3.1 mmol/L (3.6-5.0); Sodium 140 mmol/L (137-145); Total Protein 6.1 g/dL (6.3-8.2)
[2016-03-03 05:44] LABS: Anion Gap 14 mmol/L
[2016-03-03] MEDS: KCL 10MEQ/100ML 100 ML IV SCH ×3 (08:43→13:00)
--- NOTE | 2016-03-03 08:43 | Event Note ---
Date: 03/03/16 Courtesy GI visit: The patient reports feeling well overnight. Minimal abdominal pain. She is ambulating in the room, had a BM and is tolerating clear liquids. She denies any SOB, cough or CP. The abdominal exam is benign and lap incisions sites are clean and dry. CXR yesterday revealed a small apical PTX, pneumomediastinum and subcutaneous emphysema. F/u CXR ordered by pulmonary. WBC 13.4 ( decreased from 16). On antibiotics. Care discussed. I will see her in the office in 6-8 weeks. She is recovering well and will go home when cleared by surgery. Dawit Desir MD
--- NOTE | 2016-03-03 11:38 | Progress Note ---
Assessment and Plan Assessment and plan: 1. Perforated colon post colonoscopy and post ,laparoscopic repair-management is as per surgery. tolerating clear liquids as per sx; Continue IV fluids. Patient encouraged to use incentive spirometer. Continue IV Dilaudid as needed for pain and monitor for respiratory depression. Continue IV fluids and IV antibiotics. 2. Sirs with temperature spike and leukocytosis with possible sepsis-now afebrile; wbc trending down; to rule out sepsis-we'll continue to monitor. F/ U blood cultures. Continue on IV antibiotics empirically. 3. Benign hypertension-controlled, continue clonidine patch. 4. Mild hypokalemia -replace with IV potassium supplementation and continue to monitor 5. Acute blood loss anemia from sx- monitor; no need for transfusion now 6. DVT prophylaxis-SCDs, will defer chemical prophylaxis to surgery, ambulation History Interval history: f/u perforated colon post repair Patient seen at the bedside; had BM; tolerating clear fluids Hospitalist Physical - Constitutional Vitals: Temp Pulse Resp BP Pulse Ox 98.8 F 87 16 157/82 97 03/03/16 09:12 03/03/16 09:12 03/03/16 09:12 03/03/16 09:12 03/03/16 09:12 General appearance: Present: no acute distress, well-nourished - EENT Eyes: Present: PERRL, EOM intact. Absent: scleral icterus, conjunctival injection ENT: hearing intact, clear oral mucosa, no oropharyngeal erythema, no poor dentition - Neck Neck: Present: supple, normal ROM. Absent: enlarged thyroid, masses or JVD - Respiratory Respiratory effort: normal Respiratory: negative: diminished, rales, rhonchi, wheezing - Cardiovascular Rhythm: regular Heart Sounds: Present: S1 & S2. Absent: gallop - Extremities Extremities: no ischemia, pulses intact, pulses symmetrical, No edema Peripheral Pulses: within normal limits - Abdominal General gastrointestinal: soft, non-tender, distended (mild), hypoactive bowel sounds - Integumentary Integumentary: Present: clear - Psychiatric Psychiatric: appropriate mood/affect, intact judgment & insight - Neurologic Neurologic: CNII-XII intact, moves all extremities Results - Labs CBC & Chem 7: 03/03/16 04:58 03/03/16 04:58 Labs: Laboratory Last Values WBC 13.4 K/mm3 (4.5-11.0) H 03/03/16 04:58 RBC 3.53 M/mm3 (3.65-5.03) L 03/03/16 04:58 Hgb 10.0 gm/dl (10.1-14.3) L 03/03/16 04:58 Hct 29.7 % (30.3-42.9) L 03/03/16 04:58 MCV 84 fl (79-97) 03/03/16 04:58 MCH 28 pg (28-32) 03/03/16 04:58 MCHC 34 % (30-34) 03/03/16 04:58 RDW 15.4 % (13.2-15.2) H 03/03/16 04:58 Plt Count 234 K/mm3 (140-440) 03/03/16 04:58 Lymph % (Auto) 15.1 % (13.4-35.0) 03/03/16 04:58 [place] % (Auto) 7.0 % (0.0-7.3) 03/03/16 04:58 Eos % (Auto) 0.6 % (0.0-4.3) 03/03/16 04:58 Baso % (Auto) 0.3 % (0.0-1.8) 03/03/16 04:58 Lymph # 2.0 K/mm3 (1.2-5.4) 03/03/16 04:58 [place] # 0.9 K/mm3 (0.0-0.8) H 03/03/16 04:58 Eos # 0.1 K/mm3 (0.0-0.4) 03/03/16 04:58 Baso # 0.0 K/mm3 (0.0-0.1) 03/03/16 04:58 Seg Neutrophils % 77.0 % (40.0-70.0) H 03/03/16 04:58 Seg Neutrophils # 10.3 K/mm3 (1.8-7.7) H 03/03/16 04:58 Sodium 140 mmol/L (137-145) 03/03/16 04:58 Potassium 3.1 mmol/L (3.6-5.0) L 03/03/16 04:58 Chloride 102.9 mmol/L (98-107) 03/03/16 04:58 Carbon Dioxide 26 mmol/L (22-30) 03/03/16 04:58 Anion Gap 14 mmol/L 03/03/16 04:58 BUN 8 mg/dL (7-17) 03/03/16 04:58 Creatinine 0.7 mg/dL (0.7-1.2) 03/03/16 04:58 Estimated GFR > 60 ml/min 03/03/16 04:58 BUN/Creatinine Ratio 11.42 % 03/03/16 04:58 Glucose 116 mg/dL (65-100) H 03/03/16 04:58 Calcium 8.6 mg/dL (8.4-10.2) 03/03/16 04:58 Magnesium 1.8 mg/dL (1.7-2.3) 03/03/16 04:58 Total Bilirubin 0.5 mg/dL (0.1-1.2) 03/03/16 04:58 Direct Bilirubin < 0.2 mg/dL (0-0.2) 03/01/16 12:02 Indirect Bilirubin 0.0 mg/dL 03/01/16 12:02 AST 19 units/L (5-40) 03/03/16 04:58 ALT 15 units/L (7-56) 03/03/16 04:58 Alkaline Phosphatase 53 units/L (35-129) 03/03/16 04:58 Total Protein 6.1 g/dL (6.3-8.2) L 03/03/16 04:58 Albumin 3.1 g/dL (3.9-5) L 03/03/16 04:58 Albumin/Globulin Ratio 1.0 % 03/03/16 04:58 Microbiology 03/02/16 17:42 Peripheral/Venous Blood Culture - Preliminary Culture in Progress 03/02/16 17:47 Peripheral/Venous Blood Culture - Preliminary Culture in Progress
--- NOTE | 2016-03-03 15:25 | Progress Note ---
Assessment and Plan 66 y/o female with ptx and pneumomediastinum, likely secondary to bowel perforation. 1. Reviewed Surgery note and they agree with current assessment. 2. Awaiting repeat film to ensure improvement. Subjective Date of service: 03/03/16 Interval history: No acute events. Objective Vital Signs - 12hr 03/03/16 03/03/16 03/03/16 08:32 09:12 10:00 Temperature 98.6 F 98.8 F Pulse Rate 81 Pulse Rate [ 90 87 Brachial] Respiratory 18 16 Rate Blood Pressure 157/82 [Left Arm] O2 Sat by Pulse 98 97 Oximetry 03/03/16 13:26 Temperature Pulse Rate Pulse Rate [ Brachial] Respiratory 20 Rate Blood Pressure [Left Arm] O2 Sat by Pulse Oximetry Constitutional: no acute distress, alert Eyes: non-icteric ENT: oropharynx moist Neck: supple, no lymphadenopathy, other (does have some crepitus around collar bone) Ascultation: Bilateral: clear Percussion: Bilateral: not dull Tactile fremitus: Bilateral: normal Cardiovascular: regular rate and rhythm Gastrointestinal: normoactive bowel sounds, soft, other (post surgical changes) Extremities: no cyanosis, no edema Neurologic: normal mental status, non-focal exam Psychiatric: mood appropriate, affect normal CBC and BMP: 03/03/16 04:58 03/03/16 04:58 Abnormal lab findings: Abnormal Labs 03/02/16 03/02/16 03/03/16 07:23 07:23 04:58 WBC 16.6 H 13.4 H RBC 3.53 L Hgb 10.0 L Hct 29.7 L RDW 15.3 H 15.4 H [place] # 0.9 H Seg Neutrophils % 77.0 H Seg Neutrophils # 10.3 H Potassium 3.4 L Glucose 120 H Calcium 8.3 L Total Protein Albumin 03/03/16 04:58 WBC RBC Hgb Hct RDW [place] # Seg Neutrophils % Seg Neutrophils # Potassium 3.1 L Glucose 116 H Calcium Total Protein 6.1 L Albumin 3.1 L
--- NOTE | 2016-03-03 17:05 | Progress Note ---
Assessment and Plan 1. Advance diet to full liquids, will advance diet as tolerated. She has been afebrile and the WBC is decreasing. Subjective Date of service: 03/03/16 Narrative: The patient is doing well. She has tolerated clear liquid diet. She is having flatus. She has minimal incisional pain. Objective Vital Signs - 12hr 03/03/16 03/03/16 03/03/16 08:32 09:12 10:00 Temperature 98.6 F 98.8 F Pulse Rate 81 Pulse Rate [ 90 87 Brachial] Respiratory 18 16 Rate Blood Pressure 157/82 [Left Arm] O2 Sat by Pulse 98 97 Oximetry 03/03/16 13:26 Temperature Pulse Rate Pulse Rate [ Brachial] Respiratory 20 Rate Blood Pressure [Left Arm] O2 Sat by Pulse Oximetry - General physical appearance no distress - Abdomen soft, bowel sounds normal (soft, NT,ND, dressings in place) - Labs 03/03/16 04:58 03/03/16 04:58 Diabetes panel 03/03/16 Range/Units 04:58 Sodium 140 (137-145) mmol/L Potassium 3.1 L (3.6-5.0) mmol/L Chloride 102.9 (98-107) mmol/L Carbon Dioxide 26 (22-30) mmol/L BUN 8 (7-17) mg/dL Creatinine 0.7 (0.7-1.2) mg/dL Glucose 116 H (65-100) mg/dL Calcium 8.6 (8.4-10.2) mg/dL AST 19 (5-40) units/L ALT 15 (7-56) units/L Alkaline Phosphatase 53 (35-129) units/L Total Protein 6.1 L (6.3-8.2) g/dL Albumin 3.1 L (3.9-5) g/dL Calcium panel 03/03/16 Range/Units 04:58 Calcium 8.6 (8.4-10.2) mg/dL Albumin 3.1 L (3.9-5) g/dL Pituitary panel 03/03/16 Range/Units 04:58 Sodium 140 (137-145) mmol/L Potassium 3.1 L (3.6-5.0) mmol/L Chloride 102.9 (98-107) mmol/L Carbon Dioxide 26 (22-30) mmol/L BUN 8 (7-17) mg/dL Creatinine 0.7 (0.7-1.2) mg/dL Glucose 116 H (65-100) mg/dL Calcium 8.6 (8.4-10.2) mg/dL Adrenal panel 03/03/16 Range/Units 04:58 Sodium 140 (137-145) mmol/L Potassium 3.1 L (3.6-5.0) mmol/L Chloride 102.9 (98-107) mmol/L Carbon Dioxide 26 (22-30) mmol/L BUN 8 (7-17) mg/dL Creatinine 0.7 (0.7-1.2) mg/dL Glucose 116 H (65-100) mg/dL Calcium 8.6 (8.4-10.2) mg/dL Total Bilirubin 0.5 (0.1-1.2) mg/dL AST 19 (5-40) units/L ALT 15 (7-56) units/L Alkaline Phosphatase 53 (35-129) units/L Total Protein 6.1 L (6.3-8.2) g/dL Albumin 3.1 L (3.9-5) g/dL
[2016-03-03] MEDS: FLEXERIL PO SCH (17:17)
[2016-03-03] MEDS: BENAZEPRIL PO SCH (22:28)
[2016-03-03] MEDS: HCTZ PO SCH (22:28)
[2016-03-04] MEDS: ZOSYN/NS 4.5GM/100ML 100 ML IV SCH ×2 (03:26→11:39)
[2016-03-04] MEDS: FLEXERIL PO SCH (03:27)
[2016-03-04 05:02] LABS: Basophils % (Auto) 0.3 % (0.0-1.8); Eosinophils % (Auto) 2.2 % (0.0-4.3); Hematocrit 30.3 % (30.3-42.9); Mean Corpuscular HGB Conc 33 % (30-34); Mean Corpuscular Hemoglobin 28 pg (28-32); Mean Corpuscular Volume 84 fl (79-97); Platelet Count 240 K/mm3 (140-440); Red Cell Distribution Width 15.1 % (13.2-15.2); White Blood Count 12.2 K/mm3 (4.5-11.0)
[2016-03-04 05:25] LABS: BUN/Creatinine Ratio 6.66; Blood Urea Nitrogen 4 mg/dL (7-17); Calcium 8.7 mg/dL (8.4-10.2); Carbon Dioxide 26 mmol/L (22-30); Chloride 100.8 mmol/L (98-107); Glucose 118 mg/dL (65-100); Potassium 3.3 mmol/L (3.6-5.0); Sodium 140 mmol/L (137-145)
[2016-03-04 05:27] LABS: Anion Gap 17 mmol/L
--- NOTE | 2016-03-04 08:31 | XRay Report ---
CHEST 2 VIEWS: INDICATION: Pneumothorax and pneumomediastinum. COMPARISON: Yesterday. FINDINGS: Frontal and lateral chest radiographs, 3 images, suggest slight improvement in pneumomediastinum and bilateral supraclavicular subcutaneous emphysema. Stable cardiomediastinal silhouette, aortic knob calcifications and small left apical pneumothorax with pleural separation of approximately 1.2 cm, again overall estimated at 10-15%. No focal consolidation, significant pleural effusions or CHF. Few bony degenerative changes. CONCLUSION: Slight improvement in small left apical pneumothorax, pneumomediastinum and bilateral subcutaneous emphysema, as described. Thank you for the opportunity to participate in this patient's care.
--- NOTE | 2016-03-04 11:30 | Progress Note ---
Assessment and Plan Assessment and plan: 1. Perforated colon post colonoscopy and post ,laparoscopic repair-management is as per surgery; for full liquids as per sx; Continue IV fluids. Patient encouraged to use incentive spirometer. Continue IV Dilaudid as needed for pain and monitor for respiratory depression. Continue IV fluids and IV antibiotics. Remains afebrile and WBC trending down 2. Sirs with temperature spike and leukocytosis with possible sepsis-remains afebrile for more than 48 hrs; wbc continues to trend down; to rule out sepsis -we'll continue to monitor. Blood c/s NGTD; Continue on IV antibiotics empirically. 3. Benign hypertension-controlled, continue clonidine patch. 4. Mild hypokalemia -replace with po potassium supplementation and continue to monitor 5. Acute blood loss anemia from sx- monitor; no need for transfusion now; H/H stable 6. DVT prophylaxis-SCDs, will defer chemical prophylaxis to surgery, ambulation History Interval history: f/u perforated colon post repair Patient seen at the bedside; started in full liquids; no complaints today Hospitalist Physical - Constitutional Vitals: Temp Pulse Resp BP Pulse Ox 98.9 F 79 18 119/56 100 03/04/16 07:00 03/04/16 07:00 03/04/16 07:00 03/04/16 07:00 03/04/16 07:00 General appearance: Present: no acute distress, well-nourished - EENT Eyes: Present: PERRL, EOM intact. Absent: scleral icterus, conjunctival injection ENT: hearing intact, clear oral mucosa, no oropharyngeal erythema, no poor dentition - Neck Neck: Present: supple, normal ROM. Absent: enlarged thyroid, masses or JVD - Respiratory Respiratory effort: normal Respiratory: negative: diminished, rales, rhonchi, wheezing - Cardiovascular Rhythm: regular Heart Sounds: Present: S1 & S2. Absent: gallop - Extremities Extremities: no ischemia, pulses intact, pulses symmetrical, No edema Peripheral Pulses: within normal limits - Abdominal General gastrointestinal: soft, non-tender, non-distended, normal bowel sounds - Integumentary Integumentary: Present: clear - Psychiatric Psychiatric: appropriate mood/affect, intact judgment & insight - Neurologic Neurologic: CNII-XII intact, moves all extremities Results - Labs CBC & Chem 7: 03/04/16 04:40 03/04/16 04:40 Labs: Laboratory Last Values WBC 12.2 K/mm3 (4.5-11.0) H 03/04/16 04:40 RBC 3.60 M/mm3 (3.65-5.03) L 03/04/16 04:40 Hgb 10.0 gm/dl (10.1-14.3) L 03/04/16 04:40 Hct 30.3 % (30.3-42.9) 03/04/16 04:40 MCV 84 fl (79-97) 03/04/16 04:40 MCH 28 pg (28-32) 03/04/16 04:40 MCHC 33 % (30-34) 03/04/16 04:40 RDW 15.1 % (13.2-15.2) 03/04/16 04:40 Plt Count 240 K/mm3 (140-440) 03/04/16 04:40 Lymph % (Auto) 15.2 % (13.4-35.0) 03/04/16 04:40 [place] % (Auto) 7.0 % (0.0-7.3) 03/04/16 04:40 Eos % (Auto) 2.2 % (0.0-4.3) 03/04/16 04:40 Baso % (Auto) 0.3 % (0.0-1.8) 03/04/16 04:40 Lymph # 1.9 K/mm3 (1.2-5.4) 03/04/16 04:40 [place] # 0.9 K/mm3 (0.0-0.8) H 03/04/16 04:40 Eos # 0.3 K/mm3 (0.0-0.4) 03/04/16 04:40 Baso # 0.0 K/mm3 (0.0-0.1) 03/04/16 04:40 Seg Neutrophils % 75.3 % (40.0-70.0) H 03/04/16 04:40 Seg Neutrophils # 9.2 K/mm3 (1.8-7.7) H 03/04/16 04:40 Sodium 140 mmol/L (137-145) 03/04/16 04:40 Potassium 3.3 mmol/L (3.6-5.0) L 03/04/16 04:40 Chloride 100.8 mmol/L (98-107) 03/04/16 04:40 Carbon Dioxide 26 mmol/L (22-30) 03/04/16 04:40 Anion Gap 17 mmol/L 03/04/16 04:40 BUN 4 mg/dL (7-17) L 03/04/16 04:40 Creatinine 0.6 mg/dL (0.7-1.2) L 03/04/16 04:40 Estimated GFR > 60 ml/min 03/04/16 04:40 BUN/Creatinine Ratio 6.66 % 03/04/16 04:40 Glucose 118 mg/dL (65-100) H 03/04/16 04:40 Calcium 8.7 mg/dL (8.4-10.2) 03/04/16 04:40 Magnesium 1.8 mg/dL (1.7-2.3) 03/03/16 04:58 Total Bilirubin 0.5 mg/dL (0.1-1.2) 03/03/16 04:58 Direct Bilirubin < 0.2 mg/dL (0-0.2) 03/01/16 12:02 Indirect Bilirubin 0.0 mg/dL 03/01/16 12:02 AST 19 units/L (5-40) 03/03/16 04:58 ALT 15 units/L (7-56) 03/03/16 04:58 Alkaline Phosphatase 53 units/L (35-129) 03/03/16 04:58 Total Protein 6.1 g/dL (6.3-8.2) L 03/03/16 04:58 Albumin 3.1 g/dL (3.9-5) L 03/03/16 04:58 Albumin/Globulin Ratio 1.0 % 03/03/16 04:58 Microbiology 03/02/16 17:42 Peripheral/Venous Blood Culture - Preliminary NO GROWTH AFTER 24 HOURS 03/02/16 17:47 Peripheral/Venous Blood Culture - Preliminary NO GROWTH AFTER 24 HOURS
--- NOTE | 2016-03-04 12:39 | Event Note ---
Date: 03/04/16 [facility] NOTE: The patient reports feeling well. In good spirits and desires to go home. She is ambulatory, tolerating full liquids and passing stool. Normal temperature for 48hours. Minimal abdominal discomfort. The incisions are clean and dry. WBC normalizing, now 12K. She is probably stable to go home soon. D/C per surgery perhaps today on oral antibiotics. I will see her in 6 weeks.
[2016-03-04 13:04] VITALS: BP 161/73
--- NOTE | 2016-03-04 13:33 | Discharge Summary ---
Providers - Providers Date of Admission: 03/01/16 13:27 Date of discharge: 03/04/16 Attending physician: NAREN LEDESMA 03/02/16 00:05 Consult to Physician [CONS] Routine Consulting Provider: MARI DESIR Reason For Exam: colon perf Place consult to:: DR. DESIR Notified:: ANSWERING SERVICE Phone number called:: [phone] Was contact made?: Yes Time called:: 08:21 Comment:: COMPLETED - TRAVIS 03/02/16 09:33 Physical Therapy Evaluation and Treat [CONS] Routine Comment: Reason For Exam: ambulation; post abd surgery Primary care physician: JED ESTRADA Hospitalization Reason for admission: perforated colon Condition: Stable Pertinent studies: Imaging and Cardiology CT scan - abdomen: report reviewed (CT abdomen and pelvis-pneumoperitoneum, with predominance of departure no ear on the right. Interested in the retroperitoneal area surrounding the right kidney appeared partially visualized left pneumothorax and pneumomediastinum) Procedures: Laparoscopic colonorrhaphy Hospital course: Miss Islas is a 66-year-old female who presented to the emergency room after being referred by Dr. Desir for perforated colon during colonoscopy; he was evaluated by the surgeon and had laparoscopic ear done. Her postop period was uneventful. She was cleared for discharge by the surgeon. Patient was tolerating diet prior to discharge. She had pneumomediastinum and pneumothorax which was thought to be related to perforated colon for which intervention was required. She was seen by the seam sewer. condition at discharge- stable 31 minutes spent preparing discharge Disposition: DISCHARGED TO HOME OR SELFCARE - Discharge Diagnoses (1) Perforation bowel Status: Acute (2) Pneumomediastinum Status: Acute Core Measure Documentation - Palliative Care Palliative Care/ Comfort Measures: Not Applicable - Core Measures Any of the following diagnoses?: none Exam - Constitutional Vitals: Temp Pulse Resp BP Pulse Ox 98.2 F 87 20 161/73 100 03/04/16 12:00 03/04/16 12:00 03/04/16 12:00 03/04/16 12:00 03/04/16 07:00 see exam in progress note for 03/04/16 Plan Activity: advance as tolerated Diet: regular (as tolerated) Follow up with: JED ESTRADA MD [Primary Care Provider] - 3-5 Days FRANCES LEONARD MD [Staff Physician] - 7 Days Prescriptions: Levofloxacin [Levaquin TAB] 500 mg PO QDAY #4 tablet metroNIDAZOLE [Flagyl] 500 mg PO Q8HR 4 Days traMADol [Ultram 50 MG tab] 50 mg PO Q4HR PRN #20 tablet PRN Reason: Pain
--- NOTE | 2016-03-04 14:10 | Progress Note ---
Assessment and Plan 66 y/o female with ptx and pneumomediastinum, likely secondary to bowel perforation. 1. No objection to discharge from a pulm standpoint Subjective Date of service: 03/04/16 Interval history: No acute events. Crepitus has gone. Feels much better Objective Vital Signs - 12hr 03/04/16 03/04/16 07:00 12:00 Temperature 98.9 F 98.2 F Pulse Rate [ 79 87 Brachial] Respiratory 18 20 Rate Blood Pressure 119/56 161/73 [Left Arm] O2 Sat by Pulse 100 Oximetry Constitutional: no acute distress, alert Eyes: non-icteric ENT: oropharynx moist Neck: supple, no lymphadenopathy, other (does have some crepitus around collar bone) Ascultation: Bilateral: clear Percussion: Bilateral: not dull Tactile fremitus: Bilateral: normal Cardiovascular: regular rate and rhythm Gastrointestinal: normoactive bowel sounds, soft, other (post surgical changes) Extremities: no cyanosis, no edema Neurologic: normal mental status, non-focal exam Psychiatric: mood appropriate, affect normal CBC and BMP: 03/04/16 04:40 03/04/16 04:40 Abnormal lab findings: Abnormal Labs 03/02/16 03/02/16 03/03/16 07:23 07:23 04:58 WBC 16.6 H 13.4 H RBC 3.53 L Hgb 10.0 L Hct 29.7 L RDW 15.3 H 15.4 H [place] # 0.9 H Seg Neutrophils % 77.0 H Seg Neutrophils # 10.3 H Potassium 3.4 L BUN Creatinine Glucose 120 H Calcium 8.3 L Total Protein Albumin 03/03/16 03/04/16 03/04/16 04:58 04:40 04:40 WBC 12.2 H RBC 3.60 L Hgb 10.0 L Hct RDW [place] # 0.9 H Seg Neutrophils % 75.3 H Seg Neutrophils # 9.2 H Potassium 3.1 L 3.3 L BUN 4 L Creatinine 0.6 L Glucose 116 H 118 H Calcium Total Protein 6.1 L Albumin 3.1 L
--- NOTE | 2016-03-14 08:30 | Query- Present on Admission ---
Deakallie Rooney Date:_03/14/16 Host Coordinator/CDS:Serena/Jose Eugene Phone#:_[phone] Exercise your independent professional judgment when responding to this query. Questions asked do not imply a particular answer is desired or expected. We greatly appreciate your clarification on this issue. Clinical Documentation States: 66 Y/O Female admitted on 03/01/16 from her [employer] following colonoscopy identifying a possible small tear in the colon. Progress notes state SIRS rule out sepsis Clinical Findings Show: WBC on admission: 13.5 Temp: 99.7 HR: 121 Based on the above clinical scenario and your knowledge of the patient's case please clarify if the diagnosis stated below was Ruled in or out: Diagnosis: Sepsis [ ] Ruled In [ x ] Ruled Out [ ] Other [ ] Unable to determine Present on admission : [ x] Yes (Y) [ ] Clinically undeterminable(W) [ ] No(N) Please also document response in your Progress Notes and/or Discharge Summary and indicate if the condition was present on admission. DORI
== END 2016-03-04 15:21 | disposition home or self-care (01) | DRG 908 ==
LOC: ED 10:38 → CC1 13:27 → 2B-SURG 18:48
PROVIDERS: ADMIT Internal Medicine; ATTEND Hospitalist
PROC: 0WJP4ZZ Inspection of Gastrointestinal Tract, Percutaneous Endoscopic Approach (ICD-10-PCS; principal; 2016-03-01)
PROC: 0DNE4ZZ Release Large Intestine, Percutaneous Endoscopic Approach (ICD-10-PCS; principal; 2016-03-01)
DX: K91.71 Accidental puncture and laceration of a digestive system organ or structure during a digestive system procedure (principal); D62 Acute posthemorrhagic anemia; J93.9 Pneumothorax, unspecified; R65.10 Systemic inflammatory response syndrome (SIRS) of non-infectious origin without acute organ dysfunction; J98.2 Interstitial emphysema; I10 Essential (primary) hypertension; M19.90 Unspecified osteoarthritis, unspecified site; E87.6 Hypokalemia; D72.829 Elevated white blood cell count, unspecified; F41.1 Generalized anxiety disorder; Z79.899 Other long term (current) drug therapy; Z79.82 Long term (current) use of aspirin; Z88.6 Allergy status to analgesic agent; Z91.040 Latex allergy status; Z88.8 Allergy status to other drugs, medicaments and biological substances; Z90.710 Acquired absence of both cervix and uterus; Z87.891 Personal history of nicotine dependence; Y83.8 Other surgical procedures as the cause of abnormal reaction of the patient, or of later complication, without mention of misadventure at the time of the procedure; Y73.0 Diagnostic and monitoring gastroenterology and urology devices associated with adverse incidents; Y92.538 Other ambulatory health services establishments as the place of occurrence of the external cause
CPT/HCPCS: 36415; 71010; 71020; 71250; 74176; 80048; 80053; 80074; 83735; 85025; 85027; 87040; 90686; 90732; 96365; 96366; 96367; 96375; A4217; J0330; J1100; J1170; J1885; J2405; J2543; J2704; J3480; J7030; J7120